=== PATIENT | male | born 1975 | race Caucasian/White ===

== ENCOUNTER → 2017-09-22 09:16 | Outpatient (CLI) | payer OTHER, SELFPAY ==
--- NOTE | 2017-09-22 09:38 | XR_ITS ---
XR cervical spine 5V COMPARISON: None HISTORY: Neck pain and stiffness TECHNIQUE: AP lateral and oblique views and odontoid view FINDINGS: There is normal curvature and alignment. C1-C7 appear intact. Disc spaces are well maintained throughout the liver is prominent anterior ossific spurring at C4-5 level. Oblique films show normal neural foramina bilaterally. There are ossifications S posterior to the spinous processes of C5 and C6 likely within the nuchal ligament and probably due to repeated minor trauma. The prevertebral soft tissues are normal and the odontoid is normal IMPRESSION: Mild degenerative change C4-5 level and ossifications posteriorly likely within the nuchal ligament as described above
== END ==
PROVIDERS: PCP Family Medicine; Visit Provider Nurse Practitioner Family
DX: M54.2 Cervicalgia (principal); M43.6 Torticollis
CPT/HCPCS: 72050

== ENCOUNTER → 2021-03-12 09:50 | Outpatient (CLI) | payer OTHER, SELFPAY | PROVIDERS: PCP Family Medicine; Visit Provider Nurse Practitioner | DX: Z20.822 Contact with and (suspected) exposure to COVID-19 (principal); U07.1 COVID-19 | CPT/HCPCS: C9803; U0003; U0005 ==

== ENCOUNTER → 2021-04-17 06:41 | Outpatient (CLI) | payer SELFPAY ==
--- NOTE | 2021-04-17 06:42 | CT_ITS ---
PROCEDURE: CT HEART W CALCIUM SCORE CLINICAL HISTORY: Family history of heart disease COMPARISON: No exams were available for comparison TECHNIQUE: Axial images obtained with sagittal and coronal reformats. All CT scans at the facility use one or more dose reduction, viz: automated exposure control, ma/kV adjustment per patient size (including targeted exams where dose is matched to indication, i.e. head), or iterative reconstruction technique. FINDINGS: Total coronary artery calcium score is 0. No identifiable calcific atherosclerotic plaque with very low cardiovascular disease risk. There is some faint increased density in the left lower lobe which may be related atelectasis or faint infiltrate. IMPRESSION: No identifiable calcific atherosclerotic plaque with very low cardiovascular disease risk Patchy infiltrate or atelectatic changes in the left lower lobe Dictated by: Eron Abraham MD 04/23/2021 07:37 Eron Abraham MD in [place] 04/23/2021 07:37
== END ==
PROVIDERS: PCP Family Medicine; Visit Provider Nurse Practitioner Family
DX: R06.00 Dyspnea, unspecified (principal); R42 Dizziness and giddiness; R00.2 Palpitations; Z13.6 Encounter for screening for cardiovascular disorders; Z82.49 Family history of ischemic heart disease and other diseases of the circulatory system
CPT/HCPCS: 75571

== ENCOUNTER → 2021-04-17 08:32 | Outpatient (CLI) | payer OTHER, SELFPAY ==
--- NOTE | 2021-04-17 08:33 | CA_ITS ---
APPROVED REPORT Exam: Exercise Treadmill Technologist: DOMINIC SUTHERLAND, Ht: 6 ft 0 in Wt: 230 lbs BSA: 2.26 m2 HR: 68 bpm BP: 144/80 mmHg Rhythm: NSR Indications: CP; DYSPNEA Medical History Cardiac Risk Factors: FHX of CAD Stress Test Details Test: Sher HR Resting HR: 73 bpm Max Heart Rate (APMHR): 176 bpm Max HR Achieved: 164 bpm Target HR (85% APMHR): 149 bpm % of APMHR: 93 Recovery HR: 144 bpm BP Resting BP: 144/80 mmHg Max BP: 200/80 mmHg Recovery BP: 191.0/87.0 mmHg ECG Resting ECG: NSR Clinical Exercise duration: 09:00 min Highest Stage Achieved: Exercise capacity: 10.1 METs Stress ECG Conclusion Pt exercised total of 9 minutes on Sher Protocol. No chest pains or arrhythmias noted. 1mm of ST depression with T wave inversion in lead [address] response to exercise. Within normal GXT. METS 10.1.GXT only - no imaging. Test Summary REST . . . . . . . Standing REST . . . . . . . Sitting REST 05:10 0.0 0.0 73 . 144/ 80 . . Stage 1 01:00 10.0 1.7 98 . . . . Stage 1 02:00 10.0 1.7 103 . . . . Stage 1 03:00 10.0 1.7 106 . 180/ 78 . . Stage 2 01:00 12.0 2.5 120 . . . . Stage 2 02:00 12.0 2.5 127 . . . . Stage 2 03:00 12.0 2.5 135 . 190/ 80 . . Stage 3 01:00 14.0 3.4 149 . . . . Stage 3 02:00 14.0 3.4 158 . . . . Stage 3 03:00 14.0 3.4 163 . 200/ 80 . Stop exercise at 09:00 RECOVERY 01:00 0.0 0.0 144 . . . . RECOVERY 02:00 0.0 0.0 118 . 200/ 84 . . RECOVERY 03:00 0.0 0.0 107 . 191/ 87 . . RECOVERY 04:00 0.0 0.0 101 . 156/ 86 . . RECOVERY 05:00 0.0 0.0 98 . 147/ 83 . . RECOVERY 05:34 0.0 0.0 98 . 147/ 83 . . Electronically signed by : Jimenez Benitez MD 04/18/2021 13:14:10
[2021-04-17 09:55] LABS: Basophils % 0.6 % (0.1-2.0); Eosinophils # 0.1 K/mm3 (0.0-0.4); Eosinophils % 0.8 % (0.1-12.0); Hematocrit 48.8 % (42.0-52.0); Hemoglobin 15.9 g/dL (14.1-18.0); Lymphocytes # 1.6 K/mm3 (0.7-4.5); Lymphocytes % 27.2 % (10-50); Mean Corpuscular HGB Conc 32.6 g/dL (31.8-35.4); Mean Corpuscular Hemoglobin 31.9 pg (27.0-31.2); Mean Corpuscular Volume 97.8 fl (80-94); Mean Platelet Volume 7.8 fl (7.4-10.4); Monocytes # 0.4 K/mm3 (0.1-1.0); Neutrophils # 3.7 K/mm3 (1.8-7.8); Neutrophils % 64.5 % (37.0-80.0); Platelet Count 337 K/mm3 (142-424); Red Blood Count 4.99 M/mm3 (4.60-6.20); Red Cell Distribution Width 12.6 % (11.5-17.5); White Blood Count 5.8 K/mm3 (4.8-10.8)
[2021-04-17 10:51] LABS: Alanine Aminotransferase 43 U/L (12-78); Albumin Level 4.3 g/dl (3.5-5.0); Alkaline Phosphatase 62 U/L (38-126); Anion Gap 10.6 mEq/L (5-15); Aspartate Amino Transferase 29 U/L (17-59); Bilirubin,Direct 0.6 mg/dl (0.0-0.4); Bilirubin,Indirect 0.2 mg/dL (0.0-0.9); Bilirubin,Total 0.8 mg/dl (0.2-1.3); Bilirubin,Unconjugated 0.2 mg/dL (0.0-1.1); Blood Urea Nitrogen 12 mg/dl (9-20); Calcium 9.4 mg/dl (8.4-10.2); Carbon Dioxide 29 mmol/L (22.0-30.0); Chloride 106 mmol/L (98-107); Chol/HDL Ratio 4.6 (1-3.5); Cholesterol 161 mg/dl (140-200); Estimated Glomerular Filt Rate 92 ml/min (>60); GFR (African American) 111 ML/MIN (>60); Glucose 97 mg/dl (74-100); HDL Cholesterol 35 mg/dl (40-60); Potassium 4.6 mmoL/L (3.5-5.1); Sodium 141 mmol/L (136-145); Triglycerides 93 mg/dl (30-150); VLDL Cholesterol 19 mg/dL (0-40)
[2021-04-17 11:03] LABS: Direct LDL Cholesterol 104.47 mg/dL (100-129)
[2021-04-17 11:10] LABS: Free T4 (Free Thyroxine) 1.09 ng/dl (0.78-2.19)
[2021-04-17 11:22] LABS: Thyroid Stimulating Hormone 1.77 uIU/mL (0.465-4.68)
== END ==
PROVIDERS: PCP Family Medicine; Visit Provider Nurse Practitioner Family
DX: R06.00 Dyspnea, unspecified (principal); R42 Dizziness and giddiness; R00.2 Palpitations; I11.9 Hypertensive heart disease without heart failure; I63.9 Cerebral infarction, unspecified; H43.393 Other vitreous opacities, bilateral; E11.9 Type 2 diabetes mellitus without complications; K21.9 Gastro-esophageal reflux disease without esophagitis; Z82.49 Family history of ischemic heart disease and other diseases of the circulatory system
CPT/HCPCS: 36415; 80048; 80061; 80076; 84439; 84443; 85025; 93017; 93306

== ENCOUNTER → 2021-05-01 10:37 | Outpatient (CLI) | payer OTHER, SELFPAY ==
--- NOTE | 2021-05-01 10:39 | CA_ITS ---
APPROVED REPORT Senior Oracle Database Administrator: CT Laterality: Bilateral Study Quality: Good Indications: lightheadedness, vision disturbances Risk Factors Hypertension: Doppler Spectral Velocity Analysis ECA (R) 71.60/ cm/s ECA (L) 107.00/ cm/s dICA (R) 73.20/29.90 cm/s dICA (L) 62.00/28.30 cm/s Chris (R) 78.10/28.30 cm/s Chris (L) 62.60/25.10 cm/s pICA (R) 72.20/20.30 cm/s pICA (L) 85.00/23.00 cm/s dCCA (R) 69.00/21.90 cm/s dCCA (L) 68.80/21.70 cm/s pCCA (R) 84.50/15.00 cm/s pCCA (L) 98.80/21.70 cm/s Vert (R) 39.50/ cm/s Vert (L) 57.60/ cm/s ICA/CCA 1.10 ICA/CCA 1.20 Findings Duplex evaluation demonstrates stenosis of the right proximal internal carotid artery <20%. Duplex evaluation demonstrates stenosis of the left proximal internal carotid artery <20%. Duplex evaluation demonstrates antegrade flow of the bilateral Vertebral Arteries. Conclusion Duplex evaluation demonstrates stenosis of the right proximal internal carotid artery <20%. Duplex evaluation demonstrates stenosis of the left proximal internal carotid artery <20%. Duplex evaluation demonstrates antegrade flow of the bilateral Vertebral Arteries. Electronically signed by : Eron Abraham MD 05/01/2021 14:49:40
== END ==
PROVIDERS: PCP Family Medicine; Visit Provider Urology
DX: R06.00 Dyspnea, unspecified (principal); R42 Dizziness and giddiness; R00.2 Palpitations; H43.393 Other vitreous opacities, bilateral; K21.9 Gastro-esophageal reflux disease without esophagitis; Z82.49 Family history of ischemic heart disease and other diseases of the circulatory system
CPT/HCPCS: 93880

== ENCOUNTER → 2021-05-15 12:21 | Outpatient (CLI) | payer OTHER, SELFPAY ==
--- NOTE | 2021-05-15 12:23 | XR_ITS ---
PROCEDURE: XR CHEST 2V CLINICAL HISTORY: ABN CT SCAN COMPARISON: CR CXR2V XR chest 2V from 09/22/2018 CT,REPORT CT HEART W CALCIUM SCORE from 04/17/2021 FINDINGS: The cardiomediastinal silhouette and pulmonary vascularity are within normal limits. The lungs are clear without infiltrates, suspicious nodules, or pleural effusions. No acute bony abnormalities. IMPRESSION: No acute findings. Dictated by: Eron Abraham MD 05/15/2021 13:58 Eron Abraham MD in [place] 05/15/2021 13:58
== END ==
PROVIDERS: PCP Family Medicine; Visit Provider Nurse Practitioner Family
DX: R93.89 Abnormal findings on diagnostic imaging of other specified body structures (principal)
CPT/HCPCS: 71046

== ENCOUNTER 2021-08-25 10:33 | Emergency (ER) | payer OTHER, SELFPAY ==
[2021-08-25 11:10] VITALS: BP 148/70; PULSE 60; RESP 17; TEMP 36.8; O2SAT 98; BMI 31.5
--- NOTE | 2021-08-25 11:13 | HMH.EDUTC ---
[facility] [place] Disposition Clinical Impression: COVID-19 virus test result unknown Disposition: Home, Self-Care Condition on Discharge: Good Instructions: COVID-19: Testing and Tracing Referrals: Peyton Corbin MD [Primary Care Provider] - Time of Disposition: 11:16 Medical Decision Making - Lamin Inquiry Pt receiving controlled substance: No Orders (Tests/Meds): ORDERS Category Date Time Status Covid-19 Nasal PCR ([facility]) Routine Lab 08/25/21 11:14 Ordered [facility] [place] HPI - General Chief complaint: Urgent Treatment Center Stated complaint: covid test Time Seen by Provider: 08/25/21 11:13 Mode of Arrival: Ambulatory Source of Information: Patient Limitations: No Limitations - History of Present Illness Provider Complaint: 46 yr old male presnets for covid test for travel. pt has no smptoms - Related Data Home Medications Medication Instructions Recorded Confirmed No Known Home Medications 03/28/21 04/23/21 Allergies Allergy/AdvReac Type Severity Reaction Status Date / Time doxycycline AdvReac Verified 04/23/21 10:34 [facility] History - Hepatitis A Screen Attestation statement:: This patient has been screened for Hepatitis A risk factors. I have reviewed the patient's past medical history: Yes Medical History: Denies:: Diabetes Mellitus Type 1, Diabetes Mellitus Type 2 Other Surgeries: Yes: Cholecystectomy Comment: Lt arm x2. Hemorroids surgery - Social History Smoking Status: Former smoker Alcohol Intake: never Substance Use Type: denies use Occupational Status: employed Family Hx:: Diabetes, Cancer, Heart Attack, Hypertension, Stroke ROS Obtained: Yes Systems reviewed as appropriate & no additional complaints - Constitutional Constitutional: Reports system reviewed and no additional complaints, except as docu, Denies fatigue - Eyes Eyes: Reports system reviewed and no additional complaints, except as docu, Denies blurry vision - ENT Ears, Nose, Mouth, and Throat: Reports system reviewed and no additional complaints, except as docu, Denies bleeding gums - Cardiovascular Cardiovascular: Reports system reviewed and no additional complaints, except as docu, Denies chest pain - Respiratory Respiratory: Reports system reviewed and no additional complaints, except as docu, Denies change in phlegm color - Gastrointestinal Gastrointestingal: Denies: system reviewed and no additional complaints, except as docu - Genitourinary Male Genitourinary: Reports system reviewed and no additional complaints, except as docu, Denies difficulty urinating - Musculoskeletal Musculoskeletal: Reports system reviewed and no additional complaints, except as docu, Denies abnormal gait - Integumentary/Breasts Skin/Breast: Reports system reviewed and no additional complaints, except as docu, Denies dry skin - Neurologic Neurologic: Reports system reviewed and no additional complaints, except as docu, Denies dizziness - Endocrine Endocrine: Reports system reviewed and no additional complaints, except as docu, Denies fatigue - Hematologic/Lymphatic Henatologic/Lymphatic: Reports system reviewed and no additional complaints, except as docu, Denies easy bruising - Allergic/Immunologic Allergic/Immunologic: Reports system reviewed and no additional complaints, except as docu, Denies itchy eyes Physical Exam - General General appearance: alert, in no apparent distress - Head Head exam: atraumatic, normocephalic, normal inspection - Eye Eye exam: Present: normal appearance, PERRL - ENT ENT exam: Present: normal exam, normal oropharynx, mucous membranes moist, normal external ear exam - Neck Neck exam: Present: normal inspection, full ROM, trachea midline. Absent: meningismus, lymphadenopathy - Chest Chest inspection: Present: normal inspection, symmetric chest wall rise. Absent: tenderness - Respiratory Respiratory exam: Present: normal lung sounds bilaterally. Absent: respiratory distress
[2021-08-25 11:20] VITALS: BP 148/70; PULSE 60; RESP 17; TEMP 36.8; O2SAT 98
== END 2021-08-25 11:23 | disposition home or self-care (01) ==
PROVIDERS: Emergency Provider Nurse Practitioner Family; PCP Family Medicine
DX: Z03.89 Encounter for observation for other suspected diseases and conditions ruled out (principal); Z20.822 Contact with and (suspected) exposure to COVID-19; Z87.891 Personal history of nicotine dependence; Z82.49 Family history of ischemic heart disease and other diseases of the circulatory system; Z83.3 Family history of diabetes mellitus; Z80.9 Family history of malignant neoplasm, unspecified
CPT/HCPCS: 99282; C9803; U0003; U0005